=== PATIENT | male | born 1990 | race Caucasian/White ===

== ENCOUNTER 2020-08-09 16:16 | Emergency (ER) | payer OTHER ==
[~2020-08-09] VITALS: Ht 190.5 cm; Wt 90.7 kg
[~2020-08-09 16:16] MED LIST: ACET325 PO; HYDMOR4 PO; HYDR1TAB94 PO; IBUP800 PO; Naprosyn500 MG PO; Percocet 5-3251 EACH PO; Ultram50 MG PO; Veetids 500500 MG PO; Zithromax250 MG PO
== END 2020-08-09 19:00 | disposition left against medical advice (07) ==
LOC: ER 16:16
DX: K92.0 Hematemesis (principal); Z53.21 Procedure and treatment not carried out due to patient leaving prior to being seen by health care provider
CPT/HCPCS: 71046; 99283-25